=== PATIENT | male | born 2000 | race Caucasian/White ===

== ENCOUNTER 2025-06-11 23:00 | Emergency (ER) | payer OTHER, SELFPAY ==
[2025-06-11 23:11] VITALS: BP 139/87; PULSE 70; O2SAT 100; BMI 27.9
--- NOTE | 2025-06-11 23:24 | ED_ITS ---
HPI - Ear Problem General Chief complaint: Ear Stated complaint: RIGHT EAR CAN'T HEAR Time Seen by Provider: 06/11/25 23:17 Source: patient Mode of arrival: walk-in History of Present Illness HPI Narrative: presents complaining of right ear pain for one month. can't hear out of the ear. seen at urgent care and prescribed ear drops that only increased discomfort. No headache or dizziness. no fever Related Data Home Medications ?Medication ?Instructions ?Recorded ?Confirmed ofloxacin 0.3 % ear drops in a 10 drp otic (ear) BID 0 06/11/25 06/11/25 dropperette Allergies Allergy/AdvReac Type Severity Reaction Status Date / Time No Known Drug Allergies Allergy Verified 06/11/25 23:11 Review of Systems ROS Status of ROS 10 or more systems reviewed and unremark able except as noted in history and below PFSH PFSH Social History Little interest or pleasure in doing things: not at all Feeling down, depressed, or hopeless: not at all Exam Constitutional Vital Signs, click to edit/add: Last Vital Signs Pulse 70 06/11/25 23:11 Resp 20 06/11/25 23:11 BP 139/87 06/11/25 23:11 Pulse Ox 100 06/11/25 23:11 O2 Del Method Room Air 06/11/25 23:11 Common normals: no apparent distress, average body habitus, oriented x3, no limitations, healthy appearing, alert and well nourished [facility] Common normals: normocephalic and head/scalp atraumatic Other: right ear canal erythematous and appears narrow. Has white waxy appearing exud ate in the canal. Not able to see TM has pain when ear is tugged on. External ear is normal. No facial swelling Eye Common normals: PERRL and EOMs intact bilaterally Respiratory Common normals: normal respiratory effort, no retractions, no use of accessory muscles and clear to auscultation bilaterally Cardio Common normals: regular rate, regular rhythm, S1 normal heart sound and S2 normal heart sound Extremity Common normals: normal to inspection and full ROM Neuro Common normals: oriented x3, CN's II-XII intact bilaterally, moves all ex tremities and no focal motor deficits Psych Appearance: grossly normal Course Vital Signs Vital signs: Vital Signs Pulse Rate 70 06/11/25 23:11 Respiratory Rate 20 06/11/25 23:11 Blood Pressure 139/87 06/11/25 23:11 Pulse Oximetry 100 06/11/25 23:11 Oxygen Delivery Method Room Air 06/11/25 23:11 Pulse Rate 70 06/11/25 23:11 Respiratory Rate 20 06/11/25 23:11 Blood Pressure 139/87 06/11/25 23:11 Pulse Oximetry 100 06/11/25 23:11 Oxygen Delivery Method Room Air 06/11/25 23:11 Medical Decision Making MDM Narrative Medical decision making narrative: presents with ongoing ear pain . seen at urgent care and prescribed antibiotic drops that have not help and he feels they increased the pain of the ear. The ear canal appears infected and narrow. Also pain when ear is tugged. Plan course of augmentin and recommend close followup Discharge Plan Discharge Chief Complaint: Ear Clinical Impression: Otitis externa, Cellulitis of right ear canal Patient Disposition: Home, Self-Care Prescriptions / Home Meds: No Action ofloxacin 0.3 % dropperette 10 drp otic (ear) BID Print Language: Wolof Instructions: Cellulitis (ED) Additional Instructions: follow up with your doctor early next week for recheck
[2025-06-11] MEDS: AMOXICILLIN/POT CLAV 875-125 MG TABLET 1 TAB PO (23:42)
== END 2025-06-11 23:44 | disposition home or self-care (01) ==
LOC: ER 23:34
PROVIDERS: Emergency Provider Internal Medicine
DX: H60.11 Cellulitis of right external ear (principal)
CPT/HCPCS: 99283